=== PATIENT | female | born 2005 | race Hispanic/Latino ===

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

== ENCOUNTER 2025-03-26 01:46 | Emergency (ER) | payer OTHER ==
[~2025-03-26] VITALS: Ht 160 cm; Wt 71.2 kg
--- NOTE | 2025-03-26 02:12 | NUR ---
SEPSIS ALERT CALLED OVERHEAD FOR ROOM 11; PT WITH TEMP OF 103.6, PULSE OF 142
--- NOTE | 2025-03-26 02:13 | ERN ---
ED Note History of Present Illness Stated Complaint: C/O N X V, DIZZINESS Chief Complaint: Nausea,Vomiting,Diarrhea Time Seen by MD: 01:56 Time Seen by Midlevel: 01:56 Dictation: The patient is a 19-year-old female with no past medical history who presents to the emergency department with complaints of nausea nonbloody vomiting for three days. Patient denies any fevers but reports chills. Denies any abdominal pain, denies any upper respiratory symptoms, denies any diarrhea or constipation. Denies any urinary discomfort. Allergies: Coded Allergies: No Known Drug Allergies (Unverified Allergy, Unknown, 10/12/22) Home Meds Active Scripts Naproxen (Naprosyn) 500 Mg Tablet, 500 MG PO BIDPC for 5 Days, #10 TAB 0 Refills Prov:EDSON MCINTYRE 04/28/23 Cetirizine HCl (Cetirizine HCl) 10 Mg Tablet, 10 MG PO DAILY for 7 Days, #7 TAB Prov:DAMION CRAIG 10/12/22 Fluticasone Propionate (Flonase Nasal [place]) 50 Mcg/[place], 50 MCG NASAL DAILY, #1 BOTTLE 1 spray each nostril daily. Prov:DAMION CRAIG 10/12/22 Reported Medications Ondansetron HCl (Ondansetron HCl) 4 Mg Tablet, 4 MG PO TID PRN for NAUSEA/VOMITING, TAB 03/26/25 Past Medical History Past Medical History: No Pertinent History Surgical History: None LMP: Mar 12, 2025 RN Note Reviewed/Agreed w/PFSH: Yes Review of System Dictation Constitutional: Negative for weight loss positive for fever chills Eyes: Negative for injury, pain,redness, and discharge ENT: Negative for injury,pain or swelling Cardiovascular: Negative for chest pain, palpitations, and edema Respiratory: Negative for shortness of breath, cough, and wheezing, Abdomen/GI: Negative for abdominal pain, diarrhea, and constipation positive for nausea and vomiting Back: Negative for injury and pain : Negative for injury, bleeding and discharge MS/Extremity: Negative for injury and deformity Skin: Negative for rash, and discoloration Neuro: Negative for headache, weakness, numbness, tingling, and seizure Psych: Negative for suicide ideation, homicidal ideation, and hallucinations Initial Vital Sign VS Vital Signs Date Time Temp Pulse Resp B/P (MAP) Pulse Ox O2 Delivery O2 Flow Rate FiO2 03/26/25 01:48 103.6 142 20 128/72 98 Room Air 03/26/25 02:35 0 21 Physical Exam Dictation Vital Signs reviewed General Appearance: Alert, oriented x 3, no acute distress, well developed, nourished. Head and Face: non-traumatic. Eyes: PERRL, pink conjunctivas, eyelid no trauma, anterior chamber with arcus senilis. Ears: Pinnas intact and no signs of trauma or erythema ear canals clear and no discharge TM no erythema Nose: No discharge, no bleeding. Oropharynx: Mouth normal, tongue pink. pharynx clear,no erythema, tonsils no exudates, no abscesses noted, mucous membrane moist Neck: Supple, non-tender, no thyromegaly, no masses, no JVD, no bruits Breast:Deferred Chest:No tenderness, no crepitus, no paradoxical movement, no retractions Lungs:Clear, well-ventilated, symmetric, no rales, no wheezing, no rhonchi, no stridor, good breath sounds bilaterally Heart: Regular rate, regular rhythm, no murmur, no gallops Vascular: no peripheral edema, Abdomen: Soft, positive bowel sounds, nondistended, no guarding, nontender, no rebound, no masses no hepatomegaly, no splenomegaly, no Rodriguez's sign, no hernias. Rectal: Deferred Genital: Deferred Neurological: Normal speech, motor function intact, sensory function intact Musculoskeletal: Neck nontender, full range of motion, back nontender, full range of motion, Extremities: nontender, full range of motion Skin: Color pink, dry, no turgor, no rash, no lacerations, no abrasions, no contusions. Lymphatic: Deferred Results (Laboratory/Radiology) Laboratory/Radiology Laboratory Tests Test 03/26/25 02:25 White Blood Count 15.6 K/uL (4.8-10.8) H Red Blood Count 4.10 MIL/uL (4.00-5.50) Hemoglobin 12.0 g/dL (12.0-16.0) Hematocrit 35.7 % (36-48) L Mean Corpuscular Volume 87.1 fL (80-100) Mean Corpuscular Hemoglobin 29.3 pg (27.0-33.0) Mean Corpuscular Hemoglobin Concent 33.6 g/dL (32.0-36.0) Red Cell Distribution Width 15.3 % (11.0-15.5) Platelet Count 292 K/uL (130-400) Mean Platelet Volume 11.3 fL (7.5-10.5) H Immature Granulocyte % (Auto) 0.5 % (0-1) Neutrophils (%) (Auto) 93.6 % (40.0-77.0) H Lymphocytes (%) (Auto) 3.5 % (21.0-51.0) L Monocytes (%) (Auto) 1.8 % (3.0-13.0) L Eosinophils (%) (Auto) 0.3 % (0.0-8.0) Basophils (%) (Auto) 0.3 % (0.0-5.0) Neutrophils # (Auto) 14.6 K/uL (1.8-7.7) H Lymphocytes # (Auto) 0.6 K/uL (1.0-4.8) L Monocytes # (Auto) 0.3 K/uL (0.1-1.0) Eosinophils # (Auto) 0.04 K/uL (0.00-0.70) Basophils # (Auto) 0.04 K/uL (0.00-0.20) Absolute Immature Granulocyte (auto 0.08 K/uL (0-1) Nucleated Red Blood Cells 0.0 % (0.0-0.19) White Cell Morphology Comment See comments Sodium Level 132 mmol/L (136-145) L Potassium Level 3.3 mmol/L (3.5-5.1) L Chloride Level 99 mmol/L (101-111) L Carbon Dioxide Level 22 mmol/L (21-32) Blood Urea Nitrogen 8 mg/dL (7-18) Creatinine 1.0 mg/dL (0.5-1.0) Glomerular Filtration Rate Calc 83 mL/min (>90) Random Glucose 177 mg/dL (70-105) H Lactic Acid Level 2.5 mmol/L (0.8-2.5) Total Calcium 8.9 mg/dL (8.5-10.1) Magnesium Level 1.80 mg/dL (1.80-2.40) Total Bilirubin 0.7 mg/dL (0.2-1.0) Direct Bilirubin 0.3 mg/dL (0.0-0.3) Aspartate Amino Transf (AST/SGOT) 35 U/L (10-37) Alanine Aminotransferase (ALT/SGPT) 40 U/L (12-78) Alkaline Phosphatase 107 U/L (50-136) Total Creatine Kinase 23 U/L (21-232) Troponin I High Sensitivity < 4.0 ng/L (4-50) L Total Protein 7.3 g/dL (6.0-8.3) Albumin 3.3 g/dL (3.5-5.0) L Serum Test, Qualitative NEGATIVE (NEGATIVE) Influenza Type A Antigen Negative For Type A Influenza Type B Antigen Negative For Type B SARS-CoV-2 Antigen (Rapid) PRESUMPTIVE NEGATIVE Group A Streptococcus Rapid negative (NEGATIVE) Labs Reviewed?: Yes ED Course ED Course Orders Procedure Category Date Status Time 12 Lead Ekg Tracing- EKG 03/26/25 Complete Technical 02:04 Cbc With Differential LAB 03/26/25 Complete 02:04 Blood Cult KATHIE 03/26/25 In Process 02:04 Chest 1vw RAD 03/26/25 Resulted 02:04 Acetaminophen 500mg PHA 03/26/25 Complete Tab (Tylenol 500mg T 02:30 0.9%Nacl 1000ml (Ns PHA 03/26/25 Complete 1000ml) 02:30 Lactic Acid LAB 03/26/25 Complete 02:04 Ceftriaxone 1g Vial PHA 03/26/25 Complete (Rocephine 1g Inj) 02:30 Basic Metabolic Panel LAB 03/26/25 Complete 02:04 Covid19 (Sars Antigen LAB 03/26/25 Complete Rapid) 02:04 Influenza Type A & B, LAB 03/26/25 Complete Rapid 02:04 Rapid (Group A Strep) LAB 03/26/25 Complete 02:04 Hepatic Function Panel LAB 03/26/25 Complete 02:04 Ondansetron 4mg Inj PHA 03/26/25 Complete (Zofran 4mg Inj) 02:30 Pantoprazole 40mg Inj PHA 03/26/25 Complete (Protonix 40mg Inj 02:30 Testing, LAB 03/26/25 Complete Serum Hcg 02:04 Cardiac Panel LAB 03/26/25 Complete 02:04 Magnesium LAB 03/26/25 Complete 02:04 Current Medications Medications (Trade) Dose Ordered Sig/Cristino Route PRN Reason Start Time Stop Time Status Last Admin Dose Admin Acetaminophen (TYLenol 500MG TAB) 1,000 mg ONCE ONCE PO 03/26/25 02:30 03/26/25 02:31 DC 03/26/25 02:21 Ceftriaxone Sodium (ROCEphine 1G INJ) 1 gm ONCE ONCE IVPB 03/26/25 02:30 03/26/25 02:31 DC 03/26/25 02:20 Ondansetron HCl (zoFRAN 4MG INJ) 4 mg ONCE ONCE IVP 03/26/25 02:30 03/26/25 02:31 DC 03/26/25 02:21 Pantoprazole Sodium (PROTonix 40MG INJ) 40 mg ONCE ONCE IVP 03/26/25 02:30 03/26/25 02:31 DC 03/26/25 02:20 Sodium Chloride 2,136 ml @ 712 mls/hr ONCE ONCE IV 03/26/25 02:30 03/26/25 04:45 DC 03/26/25 02:21 Vital Signs Date Time Temp Pulse Resp B/P (MAP) Pulse Ox O2 Delivery O2 Flow Rate FiO2 03/26/25 04:26 98.8 85 18 120/67 98 Room Air* 0 21 03/26/25 02:35 98.8 98 18 115/65 98 Room Air* 0 03/26/25 02:21 103.6 03/26/25 01:48 103.6 142 20 128/72 98 Room Air We will perform diagnostic labs, advanced imaging and administer medications according to the patient's complaint. Once the results are available, will review and personally interpreted the labs to rule out any acute life- threatening emergency the trach require immediate intervention and treatment. I will then re-evaluate the patient after treatment and diagnostic exams have return to determine whether the patient requires any further testing, can safely be discharged home or need further admission to hospital for additional treatment and evaluation. Medical Decision Making MDM Differential diagnosis: Gastroenteritis, UTI, viral syndrome, influenza and COVID, sepsis The patient is a 19-year-old female with no past medical history who presents to the emergency department with complaints of nausea nonbloody vomiting for three days. Patient denies any fevers but reports chills. Denies any abdominal pain, denies any upper respiratory symptoms, denies any diarrhea or constipation. Denies any urinary discomfort. Temperature 103 pulse 142 respirations 20 blood pressure 128/72 at presentation. Pulse oximetry 98% on room air Labs reviewed CBC showed a white count of 15.1. BNP 7 is with a normal limits Swabs for influenza COVID and strep were negative. Lactic acid was 2.5. Electrolytes sodium was low and potassium was 3.3 On my re-evaluation, after aggressive hydration and symptomatic management, patient's nausea vomitings were resolved and she felt significantly improved. I updated the mother and patient on likely gastroenteritis with severe dehydration and leukocytosis may simply be related to vomitings and demargination. Answered all their questions. She and mother were requesting to be discharged to home as she feels significantly better Rationale: Tests considered and ordered secondary to shared decision making include: Previous outside records reviewed: Old ER visits. Risk of complication and/or morbidity or mortality of patient management: None Medications-Per medication reconciliation Need for hospitalization: Patient does not meet criteria for hospitalization. Need for emergency major/minor surgery: No There are no social concerns with this patient. Prescription drug management Prescriptions will include symptomatic care Patient's prior external medical records from other ER visits were reviewed by me as indicated. Prior testing and results from previous visits were reviewed. Prior tests were taken into account with medical decision making and resource utilization, independent historian/historians were used to obtain complete medical history. I independently interpreted the test that were performed, results were reviewed by me and considered findings on radiology if ordered. Medical management and examination interpretation discussions were had by me with other qualified healthcare professionals as indicated for the patient's c are. Problem List Problem List: (1) Gastroenteritis (2) Viral syndrome DX & DISP Disposition: Discharge Departure Impression: Primary Impression: Viral syndrome Additional Impression: Gastroenteritis Condition: Stable Additional Instructions: Patient and the caregiver have been informed of all the diagnostic tests and the imaging conducted during the today's visit to the emergency room and has verbalized understanding of the results I have personally reviewed and interpreted all diagnostic exams performed here in the ER today as well as the vital signs documented by the nursing staff. The patient is now being discharged to home and should follow up with the primary care physician or the specialist as directed by the ER staff. Follow-up with primary care provider in 1 to 2 days. Take medications as direc serge here in the emergency room. Okay to continue home medications unless otherwise discussed during your visit in the emergency room today. Return to your nearest emergency room if symptoms worsen or if there is no improvement. Call 911 if you need immediate assistance. Take Tylenol or Motrin [id number] as needed and if no contraindications are present. Increase oral hydration. A wound culture or urine culture was ordered here in the emergency room department please follow-up with primary care provider and advise them to get repeat ports from our facility. If you had any Rod wrap/splints that were applied here, please do not remove them until you see your primary care or specialty. Referrals: MIRA RAMIREZ (PCP) CHRISTINE GREGORIO Mar 26, 2025 02:13 GAURANG GREENE MD Mar 26, 2025 04:20
[2025-03-26] MEDS: [UNRECOGNIZED DRUG - OTHER] IV ONE (02:21)
[2025-03-26 02:35] LABS: IMMATURE GRANULOCYTE ABSOLUTE 0.08 K/uL (0-1); NUCLEATED RED BLOOD CELLS 0.0 % (0.0-0.19); PLATELET COUNT (AUTO) 292 K/uL (130-400); RED BLOOD CELL COUNT(AUTO) 4.10 MIL/uL (4.00-5.50); RED CELL DISTRIBUTION WIDTH 15.3 % (11.0-15.5); WHITE BLOOD COUNT (AUTO) 15.6 K/uL (4.8-10.8)
[2025-03-26 02:44] LABS: RAPID GROUP A STREP negative (NEGATIVE)
[2025-03-26 02:53] LABS: COVID19 (SARS ANTIGEN RAPID) PRESUMPTIVE NEGATIVE (NEGATIVE); INFLUENZA TYPE A Negative For Type A (NEGATIVE); INFLUENZA TYPE B Negative For Type B (NEGATIVE)
[2025-03-26 02:58] LABS: CREATININE 1.0 mg/dL (0.5-1.0); GLOMERULAR FILTR. RATE CALC 83 mL/min (>90); GLUCOSE,RANDOM 177 mg/dL (70-105); SODIUM SERUM 132 mmol/L (136-145); UREA NITROGEN, BLOOD 8 mg/dL (7-18)
[2025-03-26 02:59] VITALS: TEMP 98.8
[2025-03-26 03:05] LABS: ASPARTATE AMINOTRANSFERASE 35 U/L (10-37); CREATINE KINASE, TOTAL 23 U/L (21-232); TOTAL PROTEIN, SERUM 7.3 g/dL (6.0-8.3)
--- NOTE | 2025-03-26 04:24 | HMCIMG ---
EXAM: CR Chest, 1 view CLINICAL HISTORY: Dizziness. COMPARISON: Chest radiograph dated 11/01/2011 FINDINGS: The lungs show no infiltrates or other acute findings. No pleural effusion or pneumothorax. The cardiomediastinal silhouette is within normal limits. No acute osseous abnormality. IMPRESSION: No acute cardiopulmonary pathology is evident. Compared to the prior study, there is no significant interval change. /[place]
[2025-03-26 04:26] VITALS: BP 120/67; PULSE 85; RESP 18; TEMP 98.8; O2SAT 98
[2025-03-26] MEDS ORDERED: ONDA-104 PO (04:35)
--- NOTE | 2025-03-26 06:31 | EKG ---
[facility] Test Date: 2025-03-26 Test Time: 03:34:16 Pat Name: CANDIDO CARTER Department: [facility] Room: Gender: F Education Reviewer: [id number] : 2005 Requested By: CHRISTINE GREGORIO Order Number: [id number] Reading MD: Measurements Intervals [place] Rate: 86 P: 58 AR: 144 QRS: 4 QRSD: 103 T: 8 QT: 347 QTc: 415 Interpretive Statements Pediatric ECG interpretation Sinus rhythm No previous ECG available for comparison Please click the below link to view image of tracing. [email or web address]
== END 2025-03-26 04:32 | disposition home or self-care (01) ==
LOC: EDH 01:46
DX: B34.9 Viral infection, unspecified (principal); K52.9 Noninfective gastroenteritis and colitis, unspecified; Z20.822 Contact with and (suspected) exposure to COVID-19
CPT/HCPCS: 99285; 96374; 96375; 71045; 87426; 82550; 80076; 83735; 84484; 80048; 84703; 85025; 87040 ×2; 87086; 87186; 87880; 87804 ×2; 83605; 36415; 93005; J7030; J0696; J2405; J2470